=== PATIENT | female | born 1965 | race Caucasian/White ===

== ENCOUNTER 2020-04-30 04:36 | Observation (INO) ==
[2020-04-30] MEDS ORDERED: Naloxone 0.4 MG/ML INJ IVP PRN (07:12)
[2020-04-30] MEDS ORDERED: *HR* Heparin 5,000 UNIT/ML VIAL IVP ONE (07:58)
[2020-04-30] MEDS ORDERED: *HR* Heparin 5,000 UNIT/ML VIAL IVP PRN ×2 (07:58)
[2020-04-30] MEDS ORDERED: Heparin 25,000UNIT/250ML 1/2NS 25,000 UNIT/250 ML IV.SOLN IVC SCH (08:00)
[2020-04-30] MEDS: Nicotine 21 MG PATCH.TD24 TD SCH (08:58)
[2020-04-30] MEDS ORDERED: Perflutren Lipid Microsphere 1.3 ML in 0.9 % Sodium Chloride 8.7 ML IVP PRN (09:37)
[2020-04-30] MEDS ORDERED: Nitroglycerin 0.4 MG TAB.SUBL SL PRN (10:51)
[2020-04-30] MEDS ORDERED: *HR* Heparin 10,000 UNIT/10 ML VIAL ONE (11:59)
[2020-04-30] MEDS ORDERED: Heparin 1,000 UNITS/500 mL 500 ML ONE (11:59)
[2020-04-30] MEDS ORDERED: Nitroglycerin 1,000 MCG/10 ML VIAL IV ONE (11:59)
[2020-04-30] MEDS ORDERED: ISOVUE-370 200 ML INFUS..BTL ONE ×2 (11:59→13:37)
[2020-04-30] MEDS ORDERED: 0.9 % Sodium Chloride 1,000 ML ONE ×2 (11:59→15:44)
[2020-04-30] MEDS ORDERED: *HR* Midazolam HCl 2 MG/2 ML VIAL ONE ×2 (12:35→14:17)
[2020-04-30] MEDS ORDERED: *HR* FentaNYL (PF) 100 MCG/2 ML VIAL ONE ×2 (12:35→14:18)
[2020-04-30] MEDS ORDERED: Tirofiban 12.5 MG/250ML 12.5 MG/250 ML BAG ONE (13:01)
[2020-04-30] MEDS ORDERED: Tirofiban 12.5 MG/250ML 12.5 MG/250 ML BAG IVC SCH (13:30)
[2020-04-30] MEDS ORDERED: Nitroglycerin Spray 4.9 GM BOTTLE TL ONE (14:17)
[2020-04-30] MEDS ORDERED: *HR* FentaNYL (PF) 100 MCG/2 ML VIAL IVP ONE (14:19)
[2020-04-30] MEDS ORDERED: *HR* Midazolam HCl 2 MG/2 ML VIAL IVP ONE (14:19)
[2020-04-30] MEDS ORDERED: *HR* Labetalol 100 MG/20 ML MDV ONE (14:20)
[2020-04-30] MEDS ORDERED: *HR* Labetalol 20 MG/4 ML SYRINGE IVP ONE (14:20)
[2020-05-01 07:09] LABS: Basophils # 0.1 K/mcL (0.0-0.2); Basophils % 0.5 %; Eosinophils # 0.1 K/mcL (0.0-0.6); Eosinophils % 1.3 %; Hematocrit 43.5 % (35.3-44.9); Hemoglobin 14.5 g/dL (11.5-15.4); Immature Granulocytes % 0.4 % (0-4); Lymphocytes % 18.9 %; Mean Corpuscular HGB Conc 33.3 g/dL (31.6-35.5); Mean Corpuscular Hemoglobin 37.4 pg (28.0-33.3); Mean Corpuscular Volume 112.1 fL (83.0-100.0); Mean Platelet Volume 9.5 fL (9.4-12.4); Monocytes # 1.1 K/mcL (0.0-1.3); Monocytes % 10.9 %; Neutrophils # 7.1 K/mcL (1.6-8.9); Platelet Count 270 K/mcL (140-400); Red Blood Count 3.88 M/mcL (3.82-4.97); Red Cell Distribution Width 11.1 % (11.5-14.5); White Blood Count 10.4 K/mcL (4.3-11.1)
[2020-05-01 07:57] LABS: BUN/Creatinine Ratio 18 (6-26); Blood Urea Nitrogen 10 mg/dL (6-20); Calcium 9.4 mg/dL (8.6-10.3); Carbon Dioxide 22 mEq/L (23-29); Chloride 109 mEq/L (98-107); Glucose 97 mg/dL (70-105); Osmolality,Calculated 283 (280-300); Potassium 4.3 mEq/L (3.5-5.1); Sodium 137 mEq/L (136-145); eGFR For African Americans > 60 (> 60); eGFR For Non-African Americans > 60 (> 60)
[2020-05-01 08:08] LABS: Platelet Estimate Normal (Normal)
[2020-05-01] MEDS ORDERED: BuPROPion SR (12 HR) 150 MG TABLET PO SCH (09:00)
[2020-05-01] MEDS ORDERED: amLODIPine 5 MG TABLET PO SCH (09:00)
[2020-05-01] MEDS ORDERED: Aspirin 81 MG TAB.CHEW PO SCH (09:00)
[2020-05-01] MEDS ORDERED: lisinopriL 20 MG TABLET PO SCH (09:00)
[2020-05-01] MEDS: Nicotine 21 MG PATCH.TD24 TD SCH (09:08)
[2020-05-01 11:17] VITALS: BP 136/87
== END 2020-05-01 13:42 | disposition home or self-care (01) ==
LOC: 2ANU
PROVIDERS: ADMIT Family Medicine; ATTEND Family Medicine

== ENCOUNTER 2021-09-05 13:16 | Inpatient (IN) ==
[2021-09-05] MEDS ORDERED: 0.9 % Sodium Chloride 2,000 ML ONE (14:11)
[2021-09-05] MEDS ORDERED: ISOVUE-370 200 ML INFUS..BTL ONE ×2 (14:11→16:26)
[2021-09-05] MEDS ORDERED: *HR* Heparin 10,000 UNIT/10 ML VIAL ONE (14:11)
[2021-09-05] MEDS ORDERED: Heparin 1,000 UNITS/500 mL 500 ML ONE (14:11)
[2021-09-05] MEDS ORDERED: Nitroglycerin 1,000 MCG/5 ML VIAL IV ONE (14:11)
[2021-09-05] MEDS ORDERED: *HR* Midazolam HCl 2 MG/2 ML VIAL ONE (15:21)
[2021-09-05] MEDS ORDERED: *HR* FentaNYL (PF) 100 MCG/2 ML VIAL ONE (15:21)
[2021-09-05] MEDS ORDERED: Tirofiban 12.5 MG/250ML 12.5 MG/250 ML BAG ONE (16:03)
[2021-09-05] MEDS ORDERED: Tirofiban 12.5 MG/250ML 12.5 MG/250 ML BAG IVC SCH (16:22)
[2021-09-05] MEDS ORDERED: Perflutren Lipid Microsphere 1.3 ML in 0.9 % Sodium Chloride 8.7 ML IVP PRN (17:09)
[2021-09-05] MEDS ORDERED: Naloxone 0.4 MG/ML INJ IVP PRN (17:09)
[2021-09-05] MEDS ORDERED: Ondansetron 4 MG/2 ML VIAL IVP PRN (20:00)
[2021-09-05] MEDS: BuPROPion SR (12 HR) 150 MG TABLET PO SCH (20:22)
[2021-09-05] MEDS: Acetaminophen 325 MG TABLET PO PRN (20:22)
[2021-09-05] MEDS: *HR* Ticagrelor 90 MG TABLET PO SCH (20:22)
[2021-09-06 03:18] LABS: Basophils % 0.3 %; Eosinophils # 0.1 K/mcL (0.0-0.6); Eosinophils % 0.6 %; Hematocrit 46.7 % (35.3-44.9); Hemoglobin 16.4 g/dL (11.5-15.4); Immature Granulocytes % 0.9 % (0-4); Lymphocytes # 1.7 K/mcL (0.6-4.6); Lymphocytes % 13.5 %; Mean Corpuscular HGB Conc 35.1 g/dL (31.6-35.5); Mean Corpuscular Hemoglobin 36.9 pg (28.0-33.3); Mean Corpuscular Volume 105.2 fL (83.0-100.0); Mean Platelet Volume 9.5 fL (9.4-12.4); Monocytes # 1.4 K/mcL (0.0-1.3); Monocytes % 10.7 %; Neutrophils # 9.4 K/mcL (1.6-8.9); Platelet Count 276 K/mcL (140-400); Red Blood Count 4.44 M/mcL (3.82-4.97); Red Cell Distribution Width 11.9 % (11.5-14.5); White Blood Count 12.8 K/mcL (4.3-11.1)
[2021-09-06 03:25] LABS: BUN/Creatinine Ratio 19 (6-26); Blood Urea Nitrogen 14 mg/dL (6-20); Calcium 9.5 mg/dL (8.6-10.3); Carbon Dioxide 21 mEq/L (23-29); Chloride 109 mEq/L (98-107); Chol/HDL Ratio 7.3 (0-4.9); Cholesterol 256 mg/dL (< 200); Glucose 109 mg/dL (70-105); HDL Cholesterol 35 mg/dL (40-59); LDL Cholesterol,Calculated 174 mg/dL (< 100); Osmolality,Calculated 289 (280-300); Potassium 3.4 mEq/L (3.5-5.1); Sodium 139 mEq/L (136-145); Triglycerides 235 mg/dL (< 150); eGFR For African Americans > 60 (> 60); eGFR For Non-African Americans > 60 (> 60)
[2021-09-06 03:55] LABS: Estimated Average Glucose 103 mg/dl; Hemoglobin A1C 5.2 %
[2021-09-06] MEDS ORDERED: Potassium Chloride Elixir 20 MEQ/15 ML UDC PO ONE (07:19)
[2021-09-06] MEDS: Aspirin Enteric Coated 81 MG Tablet PO SCH (07:59)
[2021-09-06] MEDS: BuPROPion SR (12 HR) 150 MG TABLET PO SCH ×2 (07:59→20:30)
[2021-09-06] MEDS: carvediloL 6.25 MG TABLET PO SCH ×2 (07:59→16:53)
[2021-09-06] MEDS: Nicotine 21 MG PATCH.TD24 TD SCH (07:59)
[2021-09-06] MEDS: lisinopriL 20 MG TABLET PO SCH (07:59)
[2021-09-06] MEDS: *HR* Ticagrelor 90 MG TABLET PO SCH ×2 (07:59→20:30)
[2021-09-06] MEDS ORDERED: Metoprolol XL (24 HR) Succ 50 MG TAB.ER.24H PO SCH (09:00)
[2021-09-06] MEDS: Acetaminophen 325 MG TABLET PO PRN (09:51)
[2021-09-06] MEDS: amLODIPine 5 MG TABLET PO SCH (11:08)
[2021-09-06] MEDS: Isosorbide MONOnitrate (24 HR) 30 MG TAB.ER.24H PO SCH (11:08)
[2021-09-07] MEDS: BuPROPion SR (12 HR) 150 MG TABLET PO SCH ×2 (07:41→20:16)
[2021-09-07] MEDS: Aspirin Enteric Coated 81 MG Tablet PO SCH (07:41)
[2021-09-07] MEDS: amLODIPine 5 MG TABLET PO SCH (07:41)
[2021-09-07] MEDS: carvediloL 6.25 MG TABLET PO SCH (07:41)
[2021-09-07] MEDS: *HR* Ticagrelor 90 MG TABLET PO SCH ×2 (07:41→20:16)
[2021-09-07] MEDS: lisinopriL 20 MG TABLET PO SCH (07:42)
[2021-09-07] MEDS: Isosorbide MONOnitrate (24 HR) 30 MG TAB.ER.24H PO SCH (07:42)
[2021-09-07] MEDS: Nicotine 21 MG PATCH.TD24 TD SCH (07:43)
[2021-09-07] MEDS ORDERED: carvediloL 6.25 MG TABLET PO ONE (09:00)
[2021-09-07] MEDS: carvediloL 25 MG TABLET PO SCH (16:38)
[2021-09-08 04:38] LABS: Basophils % 0.4 %; Eosinophils # 0.2 K/mcL (0.0-0.6); Eosinophils % 2.1 %; Hematocrit 44.6 % (35.3-44.9); Hemoglobin 15.1 g/dL (11.5-15.4); Lymphocytes % 21.1 %; Mean Corpuscular HGB Conc 33.9 g/dL (31.6-35.5); Mean Corpuscular Hemoglobin 35.9 pg (28.0-33.3); Mean Corpuscular Volume 105.9 fL (83.0-100.0); Mean Platelet Volume 9.7 fL (9.4-12.4); Monocytes # 1.3 K/mcL (0.0-1.3); Monocytes % 13.8 %; Neutrophils # 5.7 K/mcL (1.6-8.9); Platelet Count 230 K/mcL (140-400); Red Blood Count 4.21 M/mcL (3.82-4.97); Red Cell Distribution Width 11.9 % (11.5-14.5); Segmented Neutrophils % 61.6 %; White Blood Count 9.3 K/mcL (4.3-11.1)
[2021-09-08 04:47] LABS: BUN/Creatinine Ratio 22 (6-26); Blood Urea Nitrogen 17 mg/dL (6-20); Calcium 9.6 mg/dL (8.6-10.3); Carbon Dioxide 21 mEq/L (23-29); Chloride 110 mEq/L (98-107); Glucose 94 mg/dL (70-105); Osmolality,Calculated 287 (280-300); Potassium 3.9 mEq/L (3.5-5.1); Sodium 138 mEq/L (136-145); eGFR For African Americans > 60 (> 60); eGFR For Non-African Americans > 60 (> 60)
[2021-09-08] MEDS: lisinopriL 20 MG TABLET PO SCH (07:38)
[2021-09-08] MEDS: amLODIPine 5 MG TABLET PO SCH (07:38)
[2021-09-08] MEDS: Aspirin Enteric Coated 81 MG Tablet PO SCH (07:38)
[2021-09-08] MEDS: BuPROPion SR (12 HR) 150 MG TABLET PO SCH (07:38)
[2021-09-08] MEDS: *HR* Ticagrelor 90 MG TABLET PO SCH (07:38)
[2021-09-08] MEDS: carvediloL 25 MG TABLET PO SCH (07:38)
[2021-09-08] MEDS: Isosorbide MONOnitrate (24 HR) 30 MG TAB.ER.24H PO SCH (07:38)
[2021-09-08] MEDS: Nicotine 21 MG PATCH.TD24 TD SCH (07:41)
[2021-09-08] MEDS ORDERED: Spironolactone 12.5 MG TABLET PO SCH (09:00)
[2021-09-08 11:52] VITALS: BP 178/91; PULSE 77; TEMP 98.1; O2SAT 97
[2021-09-08] MEDS ORDERED: *HR* Enoxaparin 40 MG/0.4 ML SYRINGE SQ SCH (13:00)
== END 2021-09-08 14:29 | disposition home or self-care (01) | DRG 246 ==
LOC: 2NNU
PROVIDERS: ADMIT Internal Medicine; ATTEND Internal Medicine